=== PATIENT | male | born 1995 | race Two or more races ===

== ENCOUNTER 2023-06-25 03:43 | Emergency (ER) | payer SELFPAY ==
[~2023-06-25] VITALS: Ht 167.6 cm; Wt 54.0 kg
[2023-06-25 03:52] VITALS: TEMP 97.8
[2023-06-25] MEDS ORDERED: MAG HYDROX/AL HYDROX/SIMETH 30 ML UDC ONE (04:26)
[2023-06-25] MEDS ORDERED: ONDANSETRON HCL/PF 4 MG/2 ML VIAL ONE (04:26)
[2023-06-25] MEDS ORDERED: LIDOCAINE VISCOUS 2% UD 15 ML UDC ONE (04:26)
[2023-06-25] MEDS: MAG HYDROX/AL HYDROX/SIMETH 30 ML UDC PO ONE (04:27)
[2023-06-25] MEDS: LIDOCAINE VISCOUS 2% UD 15 ML UDC MM ONE (04:27)
[2023-06-25] MEDS: ONDANSETRON HCL/PF 4 MG/2 ML VIAL IVP ONE (04:27)
[2023-06-25 04:29] LABS: BASOPHILS % (AUTO) 0.2 % (0.0-2.0); EOSINOPHILS # (AUTO) 0.1 K/uL (0.0-0.7); EOSINOPHILS % (AUTO) 1.3 % (0.0-6.0); HEMATOCRIT 45 % (39-51); HEMOGLOBIN 15.4 g/dL (13.5-17.5); LYMPHOCYTES % (AUTO) 8.5 % (20.0-44.0); MEAN CORPUSCULAR HEMOGLOBIN 30 PG (26.0-33.0); MEAN CORPUSCULAR HGB CONC 34 g/dl (31.0-36.0); MEAN CORPUSCULAR VOLUME 88 fL (80-96); MONOCYTES # (AUTO) 0.9 K/uL (0.1-1.30); MONOCYTES % (AUTO) 7.7 % (2.0-12.0); NEUTROPHILS # (AUTO) 9.5 K/uL (1.8-8.9); NEUTROPHILS % (AUTO) 82.3 % (43.0-81.0); PLATELET COUNT (AUTO) 184 K/uL (150-450); RED BLOOD CELL COUNT(AUTO) 5.12 MIL/uL (4.5-6.0); RED CELL DISTRIBUTION WIDTH 13.3 % (11.5-15.0); WHITE BLOOD COUNT (AUTO) 11.5 K/uL (4.3-11.0)
[2023-06-25 05:02] LABS: ALBUMIN 4.2 g/dL (3.4-5.0); BILIRUBIN,DIRECT 0.2 mg/dL (0.0-0.2); BILIRUBIN,TOTAL 1.1 mg/dL (0.2-1.0); CALCIUM, SERUM 9.1 mg/dL (8.5-10.1); CREATININE 0.9 mg/dL (0.6-1.3); POTASSIUM 3.7 mmol/L (3.5-5.1); TOTAL PROTEIN, SERUM 7.7 g/dL (6.4-8.2)
[2023-06-25] MEDS ORDERED: OMEP40CA21 PO (05:27)
[2023-06-25 06:04] VITALS: BP 115/72; O2SAT 100
== END 2023-06-25 05:58 | disposition home or self-care (01) ==
LOC: ER 03:47
DX: K21.9 Gastro-esophageal reflux disease without esophagitis (principal); R10.13 Epigastric pain; R11.0 Nausea
CPT/HCPCS: 99283; 96374; 85025; 80048; 83690; 80076; 36415; 82962; J2405